=== PATIENT | male | born 1945 | race Caucasian/White ===

== ENCOUNTER 2019-02-24 10:43 | Observation (INO) | payer MEDICARE, MEDICAID ==
[2019-02-24 11:49] LABS: BASO % 0.1 % (0.0-2.0); HEMOGLOBIN 13.9 g/dL (12.0-18.0); LYMPH # 0.2 K/uL (1.0-4.3); LYMPH % 2.9 % (20.0-40.0); MEAN CELL VOLUME 87.4 fL (80.0-94.0); MEAN CORPUSCULAR HEMOGLOBIN 29.4 pg (27.0-31.0); MEAN CORPUSCULAR HGB CONC 33.7 g/dL (33.0-37.0); MEAN PLATELET VOLUME 7.1 fL (7.2-11.7); MONO # 0.3 K/uL (0.0-0.8); NEUT # 7.3 K/uL (1.8-7.0); PLATELET COUNT 324 K/uL (130-400); RBC 4.72 Mil/uL (4.40-5.90); RED CELL DISTRIBUTION WIDTH 14.3 % (11.5-14.5); WHITE BLOOD COUNT 7.8 K/uL (4.8-10.8)
[2019-02-24 12:10] LABS: ALBUMIN 3.1 g/dL (3.5-5.0); ALT/SGPT 25 U/L (21-72); AST/SGOT 40 U/L (17-59); BLOOD UREA NITROGEN 16 mg/dL (9-20); CALCIUM 8.2 mg/dl (8.6-10.4); GFR NON-AFRICAN AMERICAN > 60
[2019-02-24 12:17] LABS: BANDS 1 % (0-2); GIANT PLATELETS PRESENT; LYMPHOCYTE 4 % (20-40); MONOCYTE 7 % (0-10); NEUTROPHIL 88 % (50-75); PLATELET ESTIMATE NORMAL (NORMAL); TOTAL CELLS COUNTED 100
[2019-02-24 12:30] LABS: URINE BILIRUBIN NEGATIVE (NEGATIVE); URINE BLOOD NEGATIVE (NEGATIVE); URINE CLARITY Clear (Clear); URINE COLOR Straw (YELLOW); URINE GLUCOSE (UA) 1+ mg/dL (Normal); URINE LEUKOCYTE ESTERASE NEG Leu/uL (Negative); URINE PROTEIN 2+ mg/dL (NEGATIVE); URINE UROBILINOGEN NORMAL mg/dL (0.2-1.0)
--- NOTE | 2019-02-24 14:08 | RAD ---
Date of service: 02/24/2019 HISTORY: r/o infiltrate COMPARISON: None available. TECHNIQUE: 1 view obtained. FINDINGS: LUNGS: No active pulmonary disease. PLEURA: No significant pleural effusion identified, no pneumothorax apparent. CARDIOVASCULAR: No aortic atherosclerotic calcification present. Normal cardiac size. No pulmonary vascular congestion. OSSEOUS STRUCTURES: No significant abnormalities. VISUALIZED UPPER ABDOMEN: Normal. OTHER FINDINGS: None. IMPRESSION: No active disease.
[2019-02-24] MEDS ORDERED: Sodium Chloride 0.9% 1,000 ML IV SCH (14:30)
--- NOTE | 2019-02-24 16:51 | C.PDOC ---
History Of Present Illness 73 y/o male, with history of IDDM, presents to ED after being found by family with change of mental status. EMS arrived and found patient with blood sugar level in the 20s. Patient was given D50 with resolution of symptoms. On arrival to ER, patient is still sleeping but arousable. Family states that patient has fever, cough, vomiting, and diarrhea. Reports that patient did not eat dinner last night. Time Seen by Provider: 02/24/19 11:06 Chief Complaint (Nursing): Altered Mental Status History Per: EMS, Family Onset/Duration Of Symptoms: Hrs Current Symptoms Are (Timing): Still Present Past Medical History Reviewed: Historical Data, Nursing Documentation, Vital Signs Vital Signs: Last Vital Signs Temp 97.0 F L 02/24/19 15:59 Pulse 90 02/24/19 15:59 Resp 18 02/24/19 15:59 BP 110/73 02/24/19 15:59 Pulse Ox 97 02/24/19 15:59 Family History: States: No Known Family Hx - Social History Hx Alcohol Use: No Hx Substance Use: No - Immunization History Hx Tetanus Toxoid Vaccination: No Hx Influenza Vaccination: No Hx Pneumococcal Vaccination: No Review Of Systems Except As Marked, All Systems Reviewed And Found Negative. Constitutional: Positive for: Fever. Negative for: Chills Cardiovascular: Negative for: Chest Pain Respiratory: Positive for: Cough. Negative for: Shortness of Breath Gastrointestinal: Positive for: Vomiting, Diarrhea. Negative for: Nausea, Abdominal Pain Genitourinary: Negative for: Dysuria, Hematuria Neurological: Positive for: Altered Mental Status Physical Exam - Physical Exam Appears: Non-toxic, No Acute Distress Skin: Dry, Other (Cool to the touch) Head: Atraumatic, Normacephalic Eye(s): bilateral: Normal Inspection Oral Mucosa: Moist Neck: Supple Cardiovascular: Rhythm Regular, No Murmur Respiratory: Normal Breath Sounds, No Rales, No Rhonchi, No Wheezing Gastrointestinal/Abdominal: Soft, No Tenderness Extremity: Bilateral: Atraumatic, Normal ROM Neurological/Psych: Oriented x3, Normal Speech ED Course And Treatment - Laboratory Results Result Diagrams: 02/24/19 11:45 02/24/19 11:45 Lab Results: Troponin I < 0.0120 ng/mL (0.00-0.120) 02/24/19 11:45 Total Bilirubin 0.2 mg/dL (0.2-1.3) 02/24/19 11:45 AST 40 U/L (17-59) 02/24/19 11:45 ALT 25 U/L (21-72) 02/24/19 11:45 Alkaline Phosphatase 83 U/L (38-126) 02/24/19 11:45 Total Protein 6.1 g/dL (6.3-8.3) L 02/24/19 11:45 Albumin 3.1 g/dL (3.5-5.0) L 02/24/19 11:45 Globulin 3.0 gm/dL (2.2-3.9) 02/24/19 11:45 Albumin/Globulin Ratio 1.0 (1.0-2.1) 02/24/19 11:45 Urine Color Straw (YELLOW) 02/24/19 12:03 Urine Clarity Clear (Clear) 02/24/19 12:03 Urine pH 6.0 (5.0-8.0) 02/24/19 12:03 Ur Specific [place] 1.009 (1.003-1.030) 02/24/19 12:03 Urine Protein 2+ mg/dL (NEGATIVE) H 02/24/19 12:03 Urine Glucose (UA) 1+ mg/dL (Normal) H 02/24/19 12:03 Urine Ketones Negative mg/dL (NEGATIVE) 02/24/19 12:03 Urine Blood Negative (NEGATIVE) 02/24/19 12:03 Urine Nitrate Negative (NEGATIVE) 02/24/19 12:03 Urine Bilirubin Negative (NEGATIVE) 02/24/19 12:03 Urine Urobilinogen Normal mg/dL (0.2-1.0) 02/24/19 12:03 Ur Leukocyte Esterase Neg Aishwarya/uL (Negative) 02/24/19 12:03 Urine WBC (Auto) 1 /hpf (0-5) 02/24/19 12:03 Urine RBC (Auto) < 1 /hpf (0-3) 02/24/19 12:03 Hyaline Casts 3-5 /lpf (0-2) H 02/24/19 12:03 ECG: Interpreted By Me, Viewed By Me ECG Rhythm: Sinus Rhythm Rate From EC O2 Sat by Pulse Oximetry: 97 (RA) Pulse Ox Interpretation: Normal - Other Rad CXR X-Ray: Read By Radiologist Interpretation: FINDINGS: LUNGS: No active pulmonary disease. PLEURA: No significant pleural effusion identified, no pneumothorax apparent. CARDIOVASCU LAR: No aortic atherosclerotic calcification present. Normal cardiac size. No pulmonary vascular congestion. OSSEOUS STRUCTURES: No significant abnormalities. VISUALIZED UPPER ABDOMEN: Normal. OTHER FINDINGS: None. IMPRESSION: No active disease. Medical Decision Making Medical Decision Making: Plan: --EKG --Labs --Chest XR --UA --Potassium chloride --IV fluids Disposition - Disposition Disposition Time: 14:30 Condition: STABLE - Clinical Impression Clinical Impression: Hypoglycemia, Hypokalemia, Hyponatremia, Hypothermia - Scribe Statement The provider has reviewed the documentation as recorded by the Cassia Merrill Provider Attestation: All medical record entries made by the Cassia were at my direction and personal ly dictated by me. I have reviewed the chart and agree that the record accurately reflects my personal performance of the history, physical exam, medical decision making, and the department course for this patient. I have also personally directed, reviewed, and agree with the discharge instructions and disposition.
[2019-02-24] MEDS ORDERED: Potassium Ch 20mEq in D5-1/2NS 1,000 ML IV SCH (20:30)
[2019-02-24 21:05] VITALS: RESP 20
[2019-02-24] MEDS: Sodium Chloride 0.9% 1,000 ML IV SCH (21:15)
[2019-02-24] MEDS: (Novolog) Insulin Aspart, Recombinant 100 u/ml 10 ml vial SC SCH (22:00)
--- NOTE | 2019-02-24 22:27 | CP.PCM.HP ---
Present on Admission - Present on Admission Any Indicators Present on Admission: Yes History of Uncontrolled Diabetes: Yes Past Patient History - Past Medical History & Family History Past Medical History?: Yes - Past Social History Smoking Status: Former Smoker - ENDOCRINE/METABOLIC Hx Diabetes Mellitus Type 2: Yes - MUSCULOSKELETAL/RHEUMATOLOGICAL Hx Falls: No - PSYCHIATRIC Hx Substance Use: No - SURGICAL HISTORY Hx Surgeries: No - ANESTHESIA Hx Anesthesia: No Hx Anesthesia Reactions: Yes Meds Allergies/Adverse Reactions: Allergies Allergy/AdvReac Type Severity Reaction Status Date / Time No Known Allergies Allergy Unverified 02/24/19 11:02 Results - Vital Signs Recent Vital Signs: Last Vital Signs Temp 97.9 F 02/24/19 21:04 Pulse 86 02/24/19 21:04 Resp 20 02/24/19 21:04 BP 169/86 H 02/24/19 21:04 Pulse Ox 98 02/24/19 19:49 - Labs Result Diagrams: 02/24/19 11:45 02/24/19 11:45 Labs: Laboratory Results - last 24 hr 02/24/19 02/24/19 02/24/19 10:50 11:45 11:45 WBC 7.8 RBC 4.72 Hgb 13.9 Hct 41.3 MCV 87.4 MCH 29.4 MCHC 33.7 RDW 14.3 Plt Count 324 MPV 7.1 L Neut % (Auto) 93.0 H Lymph % (Auto) 2.9 L [place] % (Auto) 4.0 Eos % (Auto) 0.0 Baso % (Auto) 0.1 Neut # (Auto) 7.3 H Lymph # (Auto) 0.2 L [place] # (Auto) 0.3 Eos # (Auto) 0.0 Baso # (Auto) 0.0 Neutrophils % (Manual) 88 H Band Neutrophils % 1 Lymphocytes % (Manual) 4 L Monocytes % (Manual) 7 Platelet Estimate Normal Giant Platelets Present Sodium 128 L Potassium 3.1 L Chloride 91 L Carbon Dioxide 26 Anion Gap 14 BUN 16 Creatinine 0.7 L Est GFR ( Amer) > 60 Est GFR (Non-Af Amer) > 60 POC Glucose (mg/dL) 103 Random Glucose 84 Calcium 8.2 L Total Bilirubin 0.2 AST 40 ALT 25 Alkaline Phosphatase 83 Troponin I < 0.0120 Total Protein 6.1 L Albumin 3.1 L Globulin 3.0 Albumin/Globulin Ratio 1.0 Urine Color Urine Clarity Urine pH Ur Specific [place] Urine Protein Urine Glucose (UA) Urine Ketones Urine Blood Urine Nitrate Urine Bilirubin Urine Urobilinogen Ur Leukocyte Esterase Urine WBC (Auto) Urine RBC (Auto) Hyaline Casts 02/24/19 02/24/19 12:03 14:09 WBC RBC Hgb Hct MCV MCH MCHC RDW Plt Count MPV Neut % (Auto) Lymph % (Auto) [place] % (Auto) Eos % (Auto) Baso % (Auto) Neut # (Auto) Lymph # (Auto) [place] # (Auto) Eos # (Auto) Baso # (Auto) Neutrophils % (Manual) Band Neutrophils % Lymphocytes % (Manual) Monocytes % (Manual) Platelet Estimate Giant Platelets Sodium Potassium Chloride Carbon Dioxide Anion Gap BUN Creatinine Est GFR ( Amer) Est GFR (Non-Af Amer) POC Glucose (mg/dL) 70 Random Glucose Calcium Total Bilirubin AST ALT Alkaline Phosphatase Troponin I Total Protein Albumin Globulin Albumin/Globulin Ratio Urine Color Straw Urine Clarity Clear Urine pH 6.0 Ur Specific [place] 1.009 Urine Protein 2+ H Urine Glucose (UA) 1+ H Urine Ketones Negative Urine Blood Negative Urine Nitrate Negative Urine Bilirubin Negative Urine Urobilinogen Normal Ur Leukocyte Esterase Neg Urine WBC (Auto) 1 Urine RBC (Auto) < 1 Hyaline Casts 3-5 H
[2019-02-25] MEDS: Sodium Chloride 0.9% 1,000 ML IV SCH (07:26)
[2019-02-25] MEDS: (Novolog) Insulin Aspart, Recombinant 100 u/ml 10 ml vial SC SCH ×4 (07:26→22:05)
[2019-02-25 07:36] LABS: MEAN CELL VOLUME 87.6 fL (80.0-94.0); MEAN CORPUSCULAR HEMOGLOBIN 29.8 pg (27.0-31.0); MEAN CORPUSCULAR HGB CONC 34.1 g/dL (33.0-37.0); MEAN PLATELET VOLUME 7.3 fL (7.2-11.7); RBC 3.82 Mil/uL (4.40-5.90); RED CELL DISTRIBUTION WIDTH 14.7 % (11.5-14.5); WHITE BLOOD COUNT 5.2 K/uL (4.8-10.8)
[2019-02-25 07:53] LABS: BLOOD UREA NITROGEN 12 mg/dL (9-20); CALCIUM 7.3 mg/dl (8.6-10.4); GFR NON-AFRICAN AMERICAN > 60
[2019-02-25 08:08] LABS: HEMOGLOBIN 11.4 g/dL (12.0-18.0)
[2019-02-25] MEDS ORDERED: Sodium Chloride 0.9% 1,000 ML IV SCH (09:03)
[2019-02-25] MEDS: Magnesium Sulfate 1 gm in D5W 1 GM/100 ML BAG IVPB SCH ×2 (09:30→10:42)
[2019-02-25] MEDS: Potassium Chloride 20 mEq/15 ml LIQ UD PO SCH ×2 (09:30→12:07)
[2019-02-25] MEDS: Enoxaparin 40 mg Syringe SC SCH (09:31)
--- NOTE | 2019-02-25 21:34 | CP.PCM.PN ---
Subjective - Date & Time of Evaluation Date of Evaluation: 02/25/19 Time of Evaluation: 19:00 - Subjective Subjective: dictated Objective - Vital Signs/Intake and Output Vital Signs (last 24 hours): Temp Pulse Resp BP Pulse Ox 98.2 F 94 H 20 184/88 H 97 02/25/19 16:32 02/25/19 16:32 02/25/19 16:32 02/25/19 16:32 02/25/19 16:47 Intake and Output: 02/25/19 02/26/19 18:59 06:59 Intake Total 900 Balance 900 - Medications Medications: Current Medications Amlodipine Besylate (Norvasc) 5 mg PO DAILY [facility] Enoxaparin Sodium (Lovenox) 40 mg SC DAILY [facility] Last Admin: 02/25/19 09:31 Dose: 40 mg Insulin Aspart (Novolog) 0 unit SC [facility]; Protocol Last Admin: 02/25/19 17:10 Dose: 4 u Insulin Aspart (Novolog Mix 70/30 (70/30 Units/Ml)) 6 units SC ACBD [facility] Losartan Potassium (Cozaar) 100 mg PO DAILY [facility] Last Admin: 02/25/19 09:32 Dose: 100 mg Pneumococcal Polyvalent Vaccine (Pneumovax 23 Vaccine) 0.5 ml IM .ONCE ONE Stop: 02/26/19 10:01 Rosuvastatin Calcium (Crestor) 10 mg PO [facility] Last Admin: 02/24/19 22:45 Dose: 10 mg - Labs Labs: 02/25/19 07:27 02/25/19 07:27
--- NOTE | 2019-02-26 00:46 | PN ---
DATE: 02/25/2019 SUBJECTIVE: Today, his blood pressure is going up. His blood sugar is going up. He is afebrile. He feels better. No episode of hypoglycemia. No nausea, vomiting. PHYSICAL EXAMINATION: VITAL SIGNS: Blood pressure is 184/88, pulse 94, respiratory rate 20, temperature 98.2. LUNGS: Clear. No rales or rhonchi. CARDIOVASCULAR SYSTEM: S1, S2. Regular. ABDOMEN: Soft. ASSESSMENT: 1. Dehydration, hypokalemia, hypomagnesemia. 2. Status post hypercholesterolemia, hypoglycemia. The patient has brittle diabetes. 3. Hypertension, poorly controlled. 4. Hyperlipidemia. PLAN: Potassium, magnesium supplementation. Start insulin. Increase blood pressure medications. Add Norvasc. Monitor the patient. Jimenez Cheung MD
--- NOTE | 2019-02-26 06:33 | HP ---
CHIEF COMPLAINT: Altered mental status x few minutes. HISTORY OF PRESENT ILLNESS: This is a 73-year-old male with history of type 2 diabetes, on insulin who is compliant with his diet, medication and followup. He also has hypertension and hyperlipidemia. He denies any history of coronary artery disease. He denies any history of stroke. The patient has been having poorly controlled sugars for the last several months, and recently the patient was started on Humalog 75/25 mix and then Novolog 70/30 mix. The patient had a few episodes of hypoglycemia on and off two days ago, and he was able to eat and control his hypoglycemia till today. He developed altered mental status, found to have low blood sugars of 20. He received D50, he woke up, and he is hospitalized. His sodium and potassium are low. He denies any nausea, vomiting, or diarrhea. He denies any history of polyuria, polydipsia, or polyphagia. He denies any history of hematuria or pyuria. He denies any history of sneezing, itchy eyes, or itchy nose. He denies any chest pain. He denies any history of cough or dyspepsia. He denies any history of trauma, fall, loss of consciousness. He denies any seizure-like activity. He was confused as per the records. ASSESSMENT: 1. Hypoglycemia. It seems like the patient's insulin dosage is high, he has needed less, also he has labile diabetes, also he is on sulfonylurea. 2. Dehydration with low sodium and low potassium. 3. Poorly controlled hypertension. PLAN: Admit. Detailed orders are written, seen and examined. Jimenez Cheung MD
[2019-02-26] MEDS ORDERED: (Novolog Mix 70/30) Insulin Aspart/Insulin Aspar 100 units/ml SC SCH ×2 (07:30→12:08)
[2019-02-26] MEDS: (Novolog) Insulin Aspart, Recombinant 100 u/ml 10 ml vial SC SCH ×2 (08:07→11:36)
[2019-02-26 08:31] LABS: BLOOD UREA NITROGEN 15 mg/dL (9-20); CALCIUM 7.9 mg/dl (8.6-10.4); GFR NON-AFRICAN AMERICAN > 60
[2019-02-26] MEDS ORDERED: Pneumococcal 23-Valent Vaccine IM ONE (10:00)
[2019-02-26] MEDS: Enoxaparin 40 mg Syringe SC SCH (10:03)
[2019-02-26 15:38] VITALS: BP 170/84; PULSE 90; TEMP 98.4; O2SAT 98
--- NOTE | 2019-02-26 16:59 | CP.PCM.PN ---
Objective - Vital Signs/Intake and Output Vital Signs (last 24 hours): Temp Pulse Resp BP Pulse Ox 98.4 F 90 20 170/84 H 98 02/26/19 15:00 02/26/19 15:00 02/26/19 15:00 02/26/19 15:00 02/26/19 15:00 Intake and Output: 02/26/19 02/26/19 06:59 18:59 Intake Total 580 300 Output Total 450 Balance 130 300 - Medications Medications: Current Medications Amlodipine Besylate (Norvasc) 5 mg PO DAILY [facility] Last Admin: 02/26/19 10:04 Dose: 5 mg Enoxaparin Sodium (Lovenox) 40 mg SC DAILY [facility] Last Admin: 02/26/19 10:03 Dose: 40 mg Insulin Aspart (Novolog) 0 unit SC ACHS [facility]; Protocol Last Admin: 02/26/19 11:36 Dose: 2 u Insulin Aspart (Novolog Mix 70/30 (70/30 Units/Ml)) 10 units SC ACBD [facility] Losartan Potassium (Cozaar) 100 mg PO DAILY [facility] Last Admin: 02/26/19 10:04 Dose: 100 mg Rosuvastatin Calcium (Crestor) 10 mg PO HS [facility] Last Admin: 02/25/19 22:04 Dose: 10 mg - Labs Labs: 02/25/19 07:27 02/26/19 07:52 Assessment and Plan - Assessment and Plan (Free Text) Assessment: Patient admitted with elctrolyte imbalance, seen and examined. Alert and orientedx3, denies any pain or distress.
--- NOTE | 2019-02-26 22:21 | CP.PCM.DIS ---
Provider - Provider Date of Admission: 02/24/19 14:18 Attending physician: Jimenez Cheung MD Time Spent in preparation of Discharge (in minutes): 30 Hospital Course - Lab Results Lab Results: Micro Results 02/24/19 14:38 Blood Blood Culture - Preliminary NO GROWTH AFTER 48 HOURS 02/24/19 14:32 Blood Blood Culture - Preliminary NO GROWTH AFTER 48 HOURS Most Recent Lab Values WBC 5.2 K/uL (4.8-10.8) 02/25/19 07:27 RBC 3.82 Mil/uL (4.40-5.90) L 02/25/19 07:27 Hgb 11.4 g/dL (12.0-18.0) L D 02/25/19 07:27 Hct 33.4 % (35.0-51.0) L 02/25/19 07:27 MCV 87.6 fL (80.0-94.0) 02/25/19 07:27 MCH 29.8 pg (27.0-31.0) 02/25/19 07:27 MCHC 34.1 g/dL (33.0-37.0) 02/25/19 07:27 RDW 14.7 % (11.5-14.5) H 02/25/19 07:27 Plt Count 274 K/uL (130-400) 02/25/19 07:27 MPV 7.3 fL (7.2-11.7) 02/25/19 07:27 Neut % (Auto) 93.0 % (50.0-75.0) H 02/24/19 11:45 Lymph % (Auto) 2.9 % (20.0-40.0) L 02/24/19 11:45 [place] % (Auto) 4.0 % (0.0-10.0) 02/24/19 11:45 Eos % (Auto) 0.0 % (0.0-4.0) 02/24/19 11:45 Baso % (Auto) 0.1 % (0.0-2.0) 02/24/19 11:45 Neut # (Auto) 7.3 K/uL (1.8-7.0) H 02/24/19 11:45 Lymph # (Auto) 0.2 K/uL (1.0-4.3) L 02/24/19 11:45 [place] # (Auto) 0.3 K/uL (0.0-0.8) 02/24/19 11:45 Eos # (Auto) 0.0 K/uL (0.0-0.7) 02/24/19 11:45 Baso # (Auto) 0.0 K/uL (0.0-0.2) 02/24/19 11:45 Neutrophils % (Manual) 88 % (50-75) H 02/24/19 11:45 Band Neutrophils % 1 % (0-2) 02/24/19 11:45 Lymphocytes % (Manual) 4 % (20-40) L 02/24/19 11:45 Monocytes % (Manual) 7 % (0-10) 02/24/19 11:45 Platelet Estimate Normal (NORMAL) 02/24/19 11:45 Giant Platelets Present 02/24/19 11:45 Sodium 130 mmol/L (132-148) L 02/26/19 07:52 Potassium 4.3 mmol/L (3.6-5.2) 02/26/19 07:52 Chloride 98 mmol/L (98-107) 02/26/19 07:52 Carbon Dioxide 30 mmol/L (22-30) 02/26/19 07:52 Anion Gap 6 (10-20) L 02/26/19 07:52 BUN 15 mg/dL (9-20) 02/26/19 07:52 Creatinine 0.8 mg/dL (0.8-1.5) 02/26/19 07:52 Est GFR ( Amer) > 60 02/26/19 07:52 Est GFR (Non-Af Amer) > 60 02/26/19 07:52 POC Glucose (mg/dL) 227 mg/dL (65-110) H 02/26/19 11:12 Random Glucose 378 mg/dL (75-110) H D 02/26/19 07:52 Hemoglobin A1c 11.1 % (4.2-6.5) H 02/25/19 07:27 Calcium 7.9 mg/dl (8.6-10.4) L 02/26/19 07:52 Magnesium 1.8 mg/dL (1.6-2.3) 02/26/19 07:52 Total Bilirubin 0.2 mg/dL (0.2-1.3) 02/24/19 11:45 AST 40 U/L (17-59) 02/24/19 11:45 ALT 25 U/L (21-72) 02/24/19 11:45 Alkaline Phosphatase 83 U/L (38-126) 02/24/19 11:45 Troponin I < 0.0120 ng/mL (0.00-0.120) 02/24/19 11:45 Total Protein 6.1 g/dL (6.3-8.3) L 02/24/19 11:45 Albumin 3.1 g/dL (3.5-5.0) L 02/24/19 11:45 Globulin 3.0 gm/dL (2.2-3.9) 02/24/19 11:45 Albumin/Globulin Ratio 1.0 (1.0-2.1) 02/24/19 11:45 Urine Color Straw (YELLOW) 02/24/19 12:03 Urine Clarity Clear (Clear) 02/24/19 12:03 Urine pH 6.0 (5.0-8.0) 02/24/19 12:03 Ur Specific [place] 1.009 (1.003-1.030) 02/24/19 12:03 Urine Protein 2+ mg/dL (NEGATIVE) H 02/24/19 12:03 Urine Glucose (UA) 1+ mg/dL (Normal) H 02/24/19 12:03 Urine Ketones Negative mg/dL (NEGATIVE) 02/24/19 12:03 Urine Blood Negative (NEGATIVE) 02/24/19 12:03 Urine Nitrate Negative (NEGATIVE) 02/24/19 12:03 Urine Bilirubin Negative (NEGATIVE) 02/24/19 12:03 Urine Urobilinogen Normal mg/dL (0.2-1.0) 02/24/19 12:03 Ur Leukocyte Esterase Neg Aishwarya/uL (Negative) 02/24/19 12:03 Urine WBC (Auto) 1 /hpf (0-5) 02/24/19 12:03 Urine RBC (Auto) < 1 /hpf (0-3) 02/24/19 12:03 Hyaline Casts 3-5 /lpf (0-2) H 02/24/19 12:03 Discharge Plan - Discharge Medications Prescriptions: Glimepiride [amaRYL] 4 mg PO BID 30 Days tab hydrALAZINE [Apresoline] 100 mg PO Q8H 30 Days tab Aspirin [Aspirin Chewable] 81 mg PO DAILY 30 Days ctb Tamsulosin [Flomax] 0.4 mg PO DAILY #30 cap Metformin HCl [Fortamet] 500 mg PO BID [address] Insulin Glargine,Hum.rec.anlog [Lantus Solostar] 25 unit SQ HS 30 Days insuln.pen Atorvastatin [Lipitor] 40 mg PO HS 30 Days tab Insulin Aspart/Insulin Aspar [Novolog Mix 70/30 (70/30 units/ml) 10 ml] 16 units SC BID 30 Days ml Omeprazole 40 mg PO DAILY 30 Days capsule. Valsartan 320 mg PO DAILY 30 Days tablet - Follow Up Plan Condition: STABLE Disposition: HOME/ ROUTINE Instructions: Diabetes Exchange Diet, Hypokalemia (DC), Low Blood Sugar, Adult (DC), Diabetes Diet , Hyponatremia (DC), Diabetic Meal Planning Additional Instructions: follow up with PMD in 1 week monitor blood sugar closely, bring the numbers to the office also bring all meds to the office to review
--- NOTE | 2019-02-27 08:37 | DS ---
DISCHARGE DIAGNOSES: 1. Hypoglycemia with poorly controlled diabetes. 2. Hypertension, poorly controlled. 3. Hyperlipidemia. HOSPITAL COURSE: This is a 73-year-old male with history of diabetes, hypertension, hyperlipidemia, who is compliant with diet, medication, and followup. He had hypoglycemic reaction several days prior to admission. The patient came to emergency room. His blood sugar was with altered mental status. Blood pressure was high. The patient was admitted. The patient says he is on insulin oral, antidiabetic medication, blood pressure medication. He denies any fever, chills, or rigors. He denies any cough, sore throat, or runny nose. The patient was admitted to the floor. He was started on AccuChek sliding scale, and then, he was converted to regular rhythm . The patient's blood pressure and blood sugar medications were reduced. His oral antidiabetic medications have been stopped. He was on insulin, and he was on the blood pressure medication. He will followed up by his PMD closely. Jimenez Cheung MD
--- NOTE | 2019-02-28 20:24 | CARD ---
APPROVED REPORT Date of service: 02/24/2019 EKG Measurement Heart [id number] <Conclusion> Sinus rhythm Prolonged QT Abnormal ECG
== END 2019-02-26 17:12 | disposition home or self-care (01) ==
LOC: C.ER 10:43 → C.9E 14:18 → C.3T 19:42
PROVIDERS: ADMIT Internal Medicine; ATTEND Internal Medicine
DX: E11.649 Type 2 diabetes mellitus with hypoglycemia without coma (principal); E78.5 Hyperlipidemia, unspecified; I10 Essential (primary) hypertension; E86.0 Dehydration; E78.00 Pure hypercholesterolemia, unspecified
CPT/HCPCS: 36415; 71045; 80048; 80053; 81001; 82948; 83036; 83735; 84484; 85025; 85027; 87040; 87086; 87181; 90732; 93005; 97162; 97530; 99285; G0009; G0378; G8978; G8979; J1650; J3475; J3480; J7030